=== PATIENT | female | born 1975 | race African-American/Black ===

== ENCOUNTER 2017-03-19 15:36 | Emergency (ER) | payer SELFPAY ==
[2017-03-19 16:10] VITALS: BP 220/105
[2017-03-19] MEDS ORDERED: cloNIDine HCL 0.1 MG TABLET PO ONE (16:15)
[2017-03-19] MEDS ORDERED: LISINOPRIL 10 MG TABLET PO ONE (16:15)
[2017-03-19] MEDS ORDERED: HYDR-971 PO (16:23)
[2017-03-19] MEDS ORDERED: NAPR500T8 PO (16:23)
[2017-03-19] MEDS ORDERED: LISI-334 PO (16:23)
[2017-03-19] MEDS ORDERED: AMOX875T PO (16:23)
--- NOTE | 2017-03-19 16:23 | PHYS DOC ---
Past Medical History Past Medical History: No Pertinent History, Hypertension Past Surgical History: No Surgical History Alcohol Use: None Drug Use: None Adult General Chief Complaint Chief Complaint: DENTAL PROBLEM HPI HPI Patient is a 41 year old female with history of hypertension currently not on medication who presents today with moderate left upper gum dental pain that began 2 days ago. Patient denies any fever or trismus. Review of Systems Review of Systems Constitutional: Denies fever or chills [] Eyes: Denies change in visual acuity, redness, or eye pain [] HENT: Left upper gum dental pain Respiratory: Denies cough or shortness of breath [] Cardiovascular: No additional information not addressed in HPI [] GI: Denies abdominal pain, nausea, vomiting, bloody stools or diarrhea [] : Denies dysuria or hematuria [] Musculoskeletal: Denies back pain or joint pain [] Integument: Denies rash or skin lesions [] Neurologic: Denies headache, focal weakness or sensory changes [] Endocrine: Denies polyuria or polydipsia [] Current Medications Current Medications Current Medications Medications (Trade) Dose Ordered Sig/Sukumar Start Time Stop Time Status Last Admin Dose Admin Clonidine HCl (Catapres) 0.2 mg 1X ONCE 03/19/17 16:15 03/19/17 16:16 DC 03/19/17 16:09 0.2 MG Lisinopril (Prinivil) 20 mg 1X ONCE 03/19/17 16:15 03/19/17 16:16 DC 03/19/17 16:10 20 MG Allergies Allergies Allergies Coded Allergies Type Severity Reaction Last Updated Verified No Known Drug Allergies 03/19/17 No Physical Exam Physical Exam Constitutional: Well developed, well nourished, no acute distress, non-toxic appearance. [] HENT: Normocephalic, atraumatic, bilateral external ears normal, oropharynx moist, no oral exudates, nose normal. [] Left upper gum is mildly indurated on the premolars with no fluctuance. The gum is erythematous in the area. There is missing teeth on the left upper gum molars and premolars Scattered infected dental caries throughout her teeth. Eyes: PERRLA, EOMI, conjunctiva normal, no discharge. [] Neck: Normal range of motion, no tenderness, supple, no stridor. [] Cardiovascular:Heart rate regular rhythm, no murmur [] Lungs & Thorax: Bilateral breath sounds clear to auscultation [] Abdomen: Bowel sounds normal, soft, no tenderness, no masses, no pulsatile masses. [] Skin: Warm, dry, no erythema, no rash. [] Back: No tenderness, no CVA tenderness. [] Extremities: No tenderness, no cyanosis, no clubbing, ROM intact, no edema. [] Neurologic: Alert and oriented X 3, normal motor function, normal sensory function, no focal deficits noted. [] Psychologic: Affect normal, judgement normal, mood normal. [] Current Patient Data Vital Signs Vital Signs Date Time Temp Pulse Resp B/P (MAP) Pulse Ox O2 Delivery O2 Flow Rate FiO2 03/19/17 16:10 85 220/105 03/19/17 15:53 98.6 20 98 Room Air 98.6 EKG EKG [] Radiology/Procedures Radiology/Procedures [] Course & Med Decision Making Course & Med Decision Making Pertinent Labs and Imaging studies reviewed. (See chart for details) Patient has infected dental caries and a dental abscess. She was put on amoxicillin for 10 days. Her blood pressure was 213/100. Patient has history of hypertension. She states she is supposed to be on lisinopril but has not taken this medication a long time. We talked about the importance of compliance with hypertension regimen. She has no neurological or cardiac symptoms right now. I gave her prescription for lisinopril as well as primary care doctors for follow- up. She was also given clonidine in the ED. Blood pressure will be rechecked prior to her discharge and she'll be provided return precautions. Dragon Disclaimer Dragon Disclaimer This electronic medical record was generated, in whole or in part, using a voice recognition dictation system. Departure Departure Impression: Primary Impression: Accelerated hypertension Additional Impressions: Dentalgia Infected dental caries Dental abscess Disposition: 01 HOME, SELF-CARE Condition: STABLE Referrals: NO PCP (PCP) Follow-up with your primary care doctor and the dentist as soon as possible Patient Instructions: Dental Abscess, Dental Caries, Hypertension Additional Instructions: You were seen for infected dental caries, dental abscess, dental pain, and hypertension. Complete your antibiotics. We highly recommend you follow-up with a dentist as well as a primary care doctor for management of hypertension. Come back to the ED at any point symptoms worsen. Scripts Naproxen (NAPROXEN) 500 Mg Tablet.dr 1 TAB PO BID, #60 TAB 1 Refill Prov: SANDEEP COLEMAN APRN 03/19/17 Lisinopril (LISINOPRIL) 20 Mg Tablet 1 TAB PO DAILY, #30 TAB 0 Refills Prov: SANDEEP COLEMAN APRN 03/19/17 Hydrocodone/Apap 5-325 (NORCO 5-325 TABLET) 1 Each Tablet 1-2 TAB PO Q4-6HRS, #40 TAB Prov: SANDEEP COLEMAN APRN 03/19/17 Amoxicillin (AMOXICILLIN) 875 Mg Tablet 1 TAB PO BID, #20 TAB Prov: SANDEEP COLEMAN APRN 03/19/17 Problem Qualifiers SANDEEP COLEMAN APRN Mar 19, 2017 16:23
== END 2017-03-19 16:28 | disposition home or self-care (01) ==
LOC: ER 15:36
DX: K04.7 Periapical abscess without sinus (principal); K02.9 Dental caries, unspecified; I10 Essential (primary) hypertension; Z79.899 Other long term (current) drug therapy
CPT/HCPCS: 99283